=== PATIENT | male | born 1960 | race African-American/Black ===

== ENCOUNTER 2020-01-31 19:00 | Inpatient (IN) | payer OTHER ==
[~2020-01-31] VITALS: Ht 177.8 cm; Wt 83.0 kg
--- NOTE | 2020-01-31 19:00 | NUR ---
ULYSSES FROM THE BUS STOP, ETOH 1 EMPTY BOTTLE OF VODKA AT THE SCENE, PER REPORT PT IS ON THE RAIN FOR 3 DAYS, pt to bed 6, placed on monitor, noted hypothermic--walker gomez obtained, pt vss, -sob, pending er provider angelika
[2020-01-31] MEDS ORDERED: Thiamine 100 MG in IV D5W 50 ML IV SCH (19:30)
[2020-01-31] MEDS ORDERED: IV NS 0.9% 1,000 ML IV ONE (19:30)
[2020-01-31 19:55] LABS: EOSINOPHILS % (AUTO) 0.2 % (0.0-6.0); HEMATOCRIT 37 % (39-51); HEMOGLOBIN 12.2 g/dL (13.5-17.5); LYMPHOCYTES # (AUTO) 0.5 /CMM (0.8-4.8); MEAN CORPUSCULAR HGB CONC 33 g/dl (31.0-36.0); MEAN CORPUSCULAR VOLUME 93 fL (80-96); MONOCYTES # (AUTO) 0.2 /CMM (0.1-1.30); NEUTROPHILS # (AUTO) 2.7 /CMM (1.8-8.9); NEUTROPHILS % (AUTO) 77.8 % (43.0-81.0); PLATELET COUNT (AUTO) 213 /CMM (150-450); WHITE BLOOD COUNT (AUTO) 3.5 K/uL (4.3-11.0)
[2020-01-31] MEDS ORDERED: Thiamine 100 MG/ML VIAL ONE (20:03)
[2020-01-31 20:13] LABS: BILIRUBIN,DIRECT 0.1 mg/dL (0.0-0.2); BILIRUBIN,TOTAL 0.1 mg/dL (0.2-1.0); CALCIUM, SERUM 8.3 mg/dL (8.5-10.1); CREATININE 0.7 mg/dL (0.6-1.3); POTASSIUM 3.2 mmol/L (3.5-5.1); TOTAL PROTEIN, SERUM 8.1 g/dL (6.4-8.2)
--- NOTE | 2020-01-31 22:38 | NUR ---
walker on hugger connected with rectal probe -- temp improving at this time, pt sleeping, -sob, vss
--- NOTE | 2020-01-31 23:34 | NUR ---
BED ASSIGNMENT 114-1
[2020-02-01] MEDS ORDERED: MAGNESIUM HYDROXIDE 30 ML UDC PO PRN
[2020-02-01] MEDS ORDERED: ACETAMINOPHEN 325 MG TABLET PO PRN
[2020-02-01] MEDS ORDERED: ONDANSETRON HCL/PF 4 MG/2 ML VIAL IVP PRN
[2020-02-01] MEDS ORDERED: Z GUARD REMEDY 2 OZ OINT TP PRN
[2020-02-01] MEDS ORDERED: IV NS 0.9% 1,000 ML IV SCH
[2020-02-01] MEDS ORDERED: MAG HYDROX/AL HYDROX/SIMETH 30 ML UDC PO PRN
--- NOTE | 2020-02-01 00:06 | NUR ---
CONSULTING SYSTEMS ENGINEER NOTES: PATIENT ARRIVED TO UNIT VIA ACLS PROTOCOL. PATIENT IS A 59-YEAR-OLD MALE WITH DX: TOXIC ENCEPHALOPATHY. LETHARGIC, OPENS EYES TO VERBAL AND TACTILE STIMULI,. UNABLE TO OBTAIN FURTHER INFO AT THIS TIME. NO S/S OF PAIN. NO FACIAL GRAMACING OR ANY ACUTE DISTRESS. IV ACCESS (L) AC G20 C/D/I, FLUSHING WELL. PATIENT WAS ABLE TO ANSWER FEW QUESTIONS BUT WENT RIGHT BACK TO SLEEP. REMAINS HYPOTHERMIC 90.4F, WARM BATH PROVIDED, BEAR HUGGER IN PLACE, TOLERATING WELL AT THIS TIME. VITAL SIGNS TAKEN. PHYSICAL ASSESSMENT DONE AND PHOTOS OF SKIN ISSUES TAKEN WITH CONSENT; PLACED IN CHART. SAFETY PRECAUTIONS IMPLEMENTED. BED LOCKED, ALARM ON, IN LOW POSITION. CALL LIGHT PLACED WITHIN REACH. WILL CONT. TO MONITOR.
--- NOTE | 2020-02-01 00:18 | NUR ---
report given to oriana mckeon for rajeev pt transported to 1st floor
[2020-02-01 01:00] VITALS: BP 125/75
--- NOTE | 2020-02-01 02:20 | NUR ---
RN NOTE: PATIENT K+ 3.2. NOTIFIED DR. BLANCAS. NEW ORDER RECEIVED. WILL CARRY OUT.
[2020-02-01] MEDS: POTASSIUM CL. PREMIX PERIPHER. 50 ML IV SCH ×4 (02:35→05:55)
--- NOTE | 2020-02-01 03:45 | NUR ---
RN NOTE: PATIENT ON NEUROLOGICAL MONITORING. NOW MORE ALERT, EASILY AROUSABLE, VERBALLY RESPONSIVE. COOPERATIVE AT THIS TIME. WILL CONT. TO MONITOR.
[2020-02-01 04:00] VITALS: BP 98/55
--- NOTE | 2020-02-01 04:29 | NUR ---
RN NOTE: PATIENT TEMP 97.0F AT THIS TIME. BEAR HUGGER STILL IN PLACE, TOLERATING WELL. WILL CONT. TO MONITOR.
--- NOTE | 2020-02-01 07:05 | NUR ---
RN NOTE: PATIENT IN BED. NOW AWAKE AND VERBALLY RESPONSIVE BUT WITH EPISODES OF CONFUSION. NO RESPIRATORY DISTRESS. NO C/O PAIN. CONT. TO MONITOR NEUROLOGICAL STATUS. PATIENT STILL UNABLE TO PROVIDE FURTHER INFO. CHARGE NURSE AWARE. PATIENT'S LATEST TEMP VIA AXILLA 98.5F. BEAR HUGGER REMOVED. SAFETY PRECAUTIONS IMPLEMENTED. BED LOCKED, ALARM ON, LOW POSITION. CALL LIGHT PLACED WITHIN REACH. ENDORSED TO AM SHIFT NURSE FOR CONTINUITY OF CARE. Addendum: 02/01/20 at 0729 by SARAH PENNINGTON RN CORRECTION: CLOSING NOTES
[2020-02-01 07:30] LABS: BASOPHILS % (AUTO) 0.6 % (0.0-2.0); EOSINOPHILS % (AUTO) 1.6 % (0.0-6.0); HEMATOCRIT 30 % (39-51); HEMOGLOBIN 9.9 g/dL (13.5-17.5); LYMPHOCYTES # (AUTO) 0.5 /CMM (0.8-4.8); LYMPHOCYTES % (AUTO) 9.5 % (20.0-44.0); MEAN CORPUSCULAR HGB CONC 33 g/dl (31.0-36.0); MEAN CORPUSCULAR VOLUME 93 fL (80-96); MONOCYTES # (AUTO) 0.4 /CMM (0.1-1.30); MONOCYTES % (AUTO) 7.4 % (2.0-12.0); NEUTROPHILS # (AUTO) 3.9 /CMM (1.8-8.9); NEUTROPHILS % (AUTO) 80.9 % (43.0-81.0); PLATELET COUNT (AUTO) 176 /CMM (150-450); RED BLOOD CELL COUNT(AUTO) 3.27 MIL/uL (4.5-6.0); WHITE BLOOD COUNT (AUTO) 4.8 K/uL (4.3-11.0)
[2020-02-01] MEDS ORDERED: PANTOPRAZOLE 40 MG TABLET.DR PO SCH (07:30)
[2020-02-01 07:45] LABS: CALCIUM, SERUM 7.4 mg/dL (8.5-10.1); CREATININE 0.8 mg/dL (0.6-1.3); MAGNESIUM 1.6 mg/dL (1.8-2.4); PHOSPHORUS 4.2 mg/dL (2.5-4.9); POTASSIUM 4.2 mmol/L (3.5-5.1)
[2020-02-01 08:00] VITALS: BP 116/67
[2020-02-01] MEDS ORDERED: IV NS 0.9% 1,000 ML IV PRN (08:40)
[2020-02-01] MEDS ORDERED: FOLIC ACID 1 MG TABLET PO SCH (09:00)
[2020-02-01] MEDS ORDERED: THIAMINE HCL 100 MG TABLET PO SCH (09:00)
[2020-02-01] MEDS ORDERED: Magnesium 1GM/D5W 100ML PREMIX 100 ML IV SCH (11:48)
[2020-02-01 12:00] VITALS: BP 108/63
[2020-02-01] MEDS ORDERED: LORAZEPAM INJ 2 MG/ML VIAL IV PRN (12:30)
--- NOTE | 2020-02-01 14:45 | NUR ---
RN CLOSING NOTE PATIENT LEAVING AGAINST MEDICAL ADVICE. MD MADE AWARE. PATIENT REFUSED TO BE PHOTOGRAPHED. IV SITE AND ID BAND REMOVED. AMA FORM SIGNED.
== END 2020-02-01 15:30 | disposition left against medical advice (07) | DRG 816 ==
LOC: EDBD 19:02 → ER 19:02 → TELE1 02-01 00:11
PROVIDERS: ADMIT Internal Medicine; ATTEND Nurse Practitioner Acute Care
DX: T51.0X1A Toxic effect of ethanol, accidental (unintentional), initial encounter (principal); G92 Toxic encephalopathy; D61.818 Other pancytopenia; T68.XXXA Hypothermia, initial encounter; E87.0 Hyperosmolality and hypernatremia; Y90.8 Blood alcohol level of 240 mg/100 ml or more; Y92.89 Other specified places as the place of occurrence of the external cause; R74.0 Nonspecific elevation of levels of transaminase and lactic acid dehydrogenase [LDH]; Z59.0 Homelessness; F17.210 Nicotine dependence, cigarettes, uncomplicated; F10.229 Alcohol dependence with intoxication, unspecified; E83.42 Hypomagnesemia; D63.8 Anemia in other chronic diseases classified elsewhere
CPT/HCPCS: 36415; 71045-TC; 80048-TC; 80076-TC; 83690-TC; 83735-TC; 84100-TC; 84484-TC; 85025-TC; 87081-TC; 97116-TC; 97530-TC; G0378; G0480; J3411; J3475; J3480; J7030; J7060

== ENCOUNTER 2020-05-26 10:09 | Emergency (ER) | payer OTHER ==
[~2020-05-26] VITALS: Ht 165.1 cm; Wt 90.7 kg
--- NOTE | 2020-05-26 10:10 | NUR ---
PT ULYSSES FROM THE STREET C/O ETOH. PT IS AAOX3, NOT IN RESPIRATORY DISTRESS, V/S STABLE, KEPT RESTED AND COMFORTABLE. WILL CONTINUE TO MONITOR.
--- NOTE | 2020-05-26 10:14 | NUR ---
PT SEEN AND EXAMINED BY .
--- NOTE | 2020-05-26 10:50 | NUR ---
ER PHLEB AT BEDSIDE FOR BLOOD DRAW.
[2020-05-26 11:11] LABS: BASOPHILS # (AUTO) 0.1 /CMM (0.0-0.2); BASOPHILS % (AUTO) 1.4 % (0.0-2.0); EOSINOPHILS % (AUTO) 0.9 % (0.0-6.0); HEMATOCRIT 37 % (39-51); LYMPHOCYTES # (AUTO) 0.9 /CMM (0.8-4.8); LYMPHOCYTES % (AUTO) 19.6 % (20.0-44.0); MEAN CORPUSCULAR HGB CONC 32 g/dl (31.0-36.0); MEAN CORPUSCULAR VOLUME 96 fL (80-96); MONOCYTES # (AUTO) 0.4 /CMM (0.1-1.30); MONOCYTES % (AUTO) 9.5 % (2.0-12.0); NEUTROPHILS # (AUTO) 3.1 /CMM (1.8-8.9); NEUTROPHILS % (AUTO) 68.6 % (43.0-81.0); PLATELET COUNT (AUTO) 187 /CMM (150-450); RED BLOOD CELL COUNT(AUTO) 3.89 MIL/uL (4.5-6.0); WHITE BLOOD COUNT (AUTO) 4.5 K/uL (4.3-11.0)
[2020-05-26 11:19] LABS: CALCIUM, SERUM 8.7 mg/dL (8.5-10.1); CARBON DIOXIDE 25 mmol/L (21-32); CHLORIDE 106 mmol/L (98-107); CREATININE 1.3 mg/dL (0.6-1.3); GLUCOSE 82 mg/dL (74-106); POTASSIUM 3.7 mmol/L (3.5-5.1); SODIUM SERUM 144 mmol/L (136-145); UREA NITROGEN, BLOOD 11 mg/dL (7-18)
[2020-05-26 11:26] LABS: ALANINE AMINOTRANSFERASE 100 U/L (12-78); ALKALINE PHOSPHATASE 93 U/L (46-116); ASPARTATE AMINOTRANSFERASE 233 U/L (15-37); BILIRUBIN,DIRECT 0.2 mg/dL (0.0-0.2); BILIRUBIN,TOTAL 0.4 mg/dL (0.2-1.0); TOTAL PROTEIN, SERUM 7.9 g/dL (6.4-8.2)
[2020-05-26 11:27] LABS: ACETAMINOPHEN < 2 ug/ml (10-30); ALCOHOL, BLOOD 328 mg/dL (0-0); SALICYLATE 2.1 mg/dL (2.8-20.0)
[2020-05-26 17:31] VITALS: BP 105/60
--- NOTE | 2020-05-26 17:31 | NUR ---
Patient given written and verbal discharge instructions. Patient verbalizes understanding of instructions. Patient is ambulatory with steady gait. Refuses offer of custodial placement. Patient given list of available shelters in surrounding area.
== END 2020-05-26 17:31 | disposition home or self-care (01) ==
LOC: EDBD → ER 10:13
DX: F10.129 Alcohol abuse with intoxication, unspecified (principal); I11.0 Hypertensive heart disease with heart failure; I50.9 Heart failure, unspecified; R74.0 Nonspecific elevation of levels of transaminase and lactic acid dehydrogenase [LDH]; D64.9 Anemia, unspecified; R41.0 Disorientation, unspecified; Y90.8 Blood alcohol level of 240 mg/100 ml or more; Z59.0 Homelessness
CPT/HCPCS: 36415; 71045; 80048; 80076; 80307; 80329; 82962; 83880; 84484; 85025; 93005; 99285; G0480

== ENCOUNTER 2020-05-27 20:11 | Emergency (ER) | payer OTHER ==
[~2020-05-27] VITALS: Ht 170.2 cm; Wt 82.6 kg
--- NOTE | 2020-05-27 20:35 | NUR ---
PATIENT CAME FROM THE STREETS C/O MIDSTERNAL CHEST PAIN FOR 2x DAYS. PATIENT ALSO STATES, "I AM HERE BECAUSE OF MY . SHE IS GOING TO GET 2.1 MILLION DOLLARS FROM ME". PATIENT STATES, ALSO ADMITS TO DRINKING. AAOX3. NO SOB. BREATHING EVENLY AND UNLABORED ON ROOM AIR. CONNECTED TO MONITOR.
--- NOTE | 2020-05-27 20:43 | NUR ---
BLOOD DRAWN AND SENT TO THE LAB.
[2020-05-27 20:48] LABS: BASOPHILS # (AUTO) 0.1 /CMM (0.0-0.2); BASOPHILS % (AUTO) 1.3 % (0.0-2.0); EOSINOPHILS % (AUTO) 0.8 % (0.0-6.0); HEMATOCRIT 32 % (39-51); HEMOGLOBIN 10.4 g/dL (13.5-17.5); LYMPHOCYTES # (AUTO) 1.2 /CMM (0.8-4.8); LYMPHOCYTES % (AUTO) 25.1 % (20.0-44.0); MEAN CORPUSCULAR HGB CONC 33 g/dl (31.0-36.0); MEAN CORPUSCULAR VOLUME 95 fL (80-96); MONOCYTES # (AUTO) 0.5 /CMM (0.1-1.30); NEUTROPHILS # (AUTO) 3.1 /CMM (1.8-8.9); NEUTROPHILS % (AUTO) 62.8 % (43.0-81.0); PLATELET COUNT (AUTO) 173 /CMM (150-450); RED BLOOD CELL COUNT(AUTO) 3.35 MIL/uL (4.5-6.0); WHITE BLOOD COUNT (AUTO) 4.9 K/uL (4.3-11.0)
[2020-05-27 20:55] LABS: CALCIUM, SERUM 8.8 mg/dL (8.5-10.1); CREATININE 1.3 mg/dL (0.6-1.3); POTASSIUM 3.7 mmol/L (3.5-5.1)
--- NOTE | 2020-05-28 01:22 | NUR ---
pt is resting in bed awake and responsive. watching TV. VSS. will cont to monitor ,
[2020-05-28 06:45] VITALS: BP 123/71
[2020-07-03] MEDS ORDERED: CARV6.252 PO (15:03)
== END 2020-05-28 06:45 | disposition home or self-care (01) ==
LOC: ER 20:15
DX: R00.2 Palpitations (principal); F10.10 Alcohol abuse, uncomplicated; I11.0 Hypertensive heart disease with heart failure; I50.9 Heart failure, unspecified; E11.9 Type 2 diabetes mellitus without complications; Z59.0 Homelessness; Y90.8 Blood alcohol level of 240 mg/100 ml or more
CPT/HCPCS: 36415; 71045-TC; 80048-TC; 84484-TC; 85025-TC

== ENCOUNTER 2020-06-25 16:14 | Emergency (ER) | payer OTHER ==
[~2020-06-25] VITALS: Ht 170.2 cm; Wt 74.8 kg
[2020-06-25 18:13] LABS: BASOPHILS % (AUTO) 0.8 % (0.0-2.0); EOSINOPHILS % (AUTO) 3.2 % (0.0-6.0); HEMATOCRIT 31 % (39-51); LYMPHOCYTES # (AUTO) 1.1 /CMM (0.8-4.8); LYMPHOCYTES % (AUTO) 27.8 % (20.0-44.0); MEAN CORPUSCULAR HGB CONC 32 g/dl (31.0-36.0); MEAN CORPUSCULAR VOLUME 96 fL (80-96); MONOCYTES # (AUTO) 0.5 /CMM (0.1-1.30); MONOCYTES % (AUTO) 13.7 % (2.0-12.0); NEUTROPHILS # (AUTO) 2.1 /CMM (1.8-8.9); NEUTROPHILS % (AUTO) 54.5 % (43.0-81.0); PLATELET COUNT (AUTO) 142 /CMM (150-450); RED BLOOD CELL COUNT(AUTO) 3.28 MIL/uL (4.5-6.0); WHITE BLOOD COUNT (AUTO) 3.9 K/uL (4.3-11.0)
[2020-06-25 18:32] LABS: ALBUMIN 3.9 g/dL (3.4-5.0); BILIRUBIN,TOTAL 0.2 mg/dL (0.2-1.0); CALCIUM, SERUM 8.7 mg/dL (8.5-10.1); CREATININE 1.2 mg/dL (0.6-1.3); POTASSIUM 3.8 mmol/L (3.5-5.1); TOTAL PROTEIN, SERUM 7.3 g/dL (6.4-8.2)
[2020-06-25 19:29] VITALS: BP 134/90
== END 2020-06-25 19:29 | disposition home or self-care (01) ==
LOC: ER 16:16
DX: F10.10 Alcohol abuse, uncomplicated (principal); R07.89 Other chest pain; I11.0 Hypertensive heart disease with heart failure; I50.9 Heart failure, unspecified; E11.9 Type 2 diabetes mellitus without complications; Y90.9 Presence of alcohol in blood, level not specified; Z59.0 Homelessness
CPT/HCPCS: 36415; 71045-TC; 80053-TC; 84484-TC; 85025-TC

== ENCOUNTER 2020-07-01 09:29 | Inpatient (IN) | payer OTHER ==
[~2020-07-01] VITALS: Ht 167.6 cm; Wt 76.7 kg
--- NOTE | 2020-07-01 09:33 | NUR ---
CATRACHITA RA 85 Homeless from [facility] parking lot "Flagged a guard stating been having pains that feels like gas going to chest-arm. +ETOH-drinking on scene. To ER bed 11, hooked to statistical developer, changed to hosp gown, warm blanket provided, patient aao X 3, appears drowsy. Patient states "pain in the middle of my chest and going to the L arm". Awaiting MD carney
--- NOTE | 2020-07-01 09:34 | NUR ---
Dr Leonardo at bedside
[2020-07-01] MEDS ORDERED: NITROGLYCERIN 0.4 MG/TAB BOTTLE SL ONE (10:00)
[2020-07-01] MEDS ORDERED: ASPIRIN 325 MG TABLET PO ONE (10:00)
[2020-07-01 10:02] LABS: BASOPHILS # (AUTO) 0.1 /CMM (0.0-0.2); BASOPHILS % (AUTO) 1.3 % (0.0-2.0); EOSINOPHILS % (AUTO) 1.2 % (0.0-6.0); HEMATOCRIT 37 % (39-51); HEMOGLOBIN 11.7 g/dL (13.5-17.5); LYMPHOCYTES # (AUTO) 1.1 /CMM (0.8-4.8); LYMPHOCYTES % (AUTO) 17.8 % (20.0-44.0); MEAN CORPUSCULAR HGB CONC 32 g/dl (31.0-36.0); MEAN CORPUSCULAR VOLUME 98 fL (80-96); MONOCYTES # (AUTO) 0.6 /CMM (0.1-1.30); MONOCYTES % (AUTO) 9.3 % (2.0-12.0); NEUTROPHILS # (AUTO) 4.2 /CMM (1.8-8.9); NEUTROPHILS % (AUTO) 70.4 % (43.0-81.0); PLATELET COUNT (AUTO) 218 /CMM (150-450); RED BLOOD CELL COUNT(AUTO) 3.74 MIL/uL (4.5-6.0); WHITE BLOOD COUNT (AUTO) 5.9 K/uL (4.3-11.0)
[2020-07-01] MEDS ORDERED: ASPIRIN 325 MG TABLET ONE (10:03)
[2020-07-01] MEDS ORDERED: NITROGLYCERIN 0.4 MG/TAB BOTTLE ONE (10:03)
[2020-07-01 10:49] LABS: CALCIUM, SERUM 8.4 mg/dL (8.5-10.1); CREATININE 0.9 mg/dL (0.6-1.3); POTASSIUM 3.9 mmol/L (3.5-5.1)
[2020-07-01] MEDS ORDERED: PHEN100C12 PO (11:25)
[2020-07-01] MEDS ORDERED: CLOP75TA15 PO (11:25)
[2020-07-01] MEDS ORDERED: CARV6.252 PO (11:25)
[2020-07-01] MEDS ORDERED: ASPI-1420 PO (11:25)
[2020-07-01] MEDS ORDERED: ATOR40TA PO (11:25)
[2020-07-01] MEDS ORDERED: AMLO5TAB9 PO (11:25)
--- NOTE | 2020-07-01 11:42 | NUR ---
ER ADMIT NURSE SHIMA CALLED FROM [facility] AUTHORIZED PATIENT FOR ADMISSION AUTH#[id number] FAX
--- NOTE | 2020-07-01 12:20 | NUR ---
CALLED NURSING SUP REQUESTING BED.
--- NOTE | 2020-07-01 13:03 | NUR ---
CALLED [employer] HIGH WORKER WAS PAGED.
--- NOTE | 2020-07-01 13:45 | NUR ---
RECEIVED PATIENT FROM ER [facility]IA [facility]. A/OX4, AMBULATORY. NOT IN ANY FORM OF DISTRESS. NO SOB. COMPLAINTS OF PAIN 08/28, "ALL OVER THE BODY", WILL ADMINISTER PAIN MEDS ORDERED. SITUATED THE PATIENT IN THE ROOM. ON TELEMONITOR SR 79. SKIN ASSESSMENT DONE, SKIN INTACT. BELONGINGS CHECKED BY PAUL CORDERO, FORMS SIGNED. INSTRUCTED TO USE THE CALL LIGHT FOR ANY ASSISTANCE NEEDED. KEPT PATIENT COMFORTABLE. BED IN LOW/LOCKED PSOITION. PADDED SIDERAILS FOR SEIZURE PRECAUTIONS. HOB ELEVATED. CALL LIGHT IN REACH. WILL CONT TO MONITOR ACCORDINGLY. Addendum: 07/01/20 at 1919 by GATITO KAISER WRONG TIME
--- NOTE | 2020-07-01 13:51 | NUR ---
rapid covid swab done and sent to lab
--- NOTE | 2020-07-01 14:29 | NUR ---
RAPID COVID =NEGATIVE PER LAB
[2020-07-01 15:34] VITALS: BP 129/92
--- NOTE | 2020-07-01 15:35 | NUR ---
RECEIVED PATIENT FROM ER [facility]IA [facility]. A/OX4, AMBULATORY. NOT IN ANY FORM OF DISTRESS. NO SOB. COMPLAINTS OF PAIN 10/, "ALL OVER THE BODY", WILL ADMINISTER PAIN MEDS ORDERED. SITUATED THE PATIENT IN THE ROOM. ON TELEMONITOR SR 79. SKIN ASSESSMENT DONE, SKIN INTACT. BELONGINGS CHECKED BY PAUL CORDERO, FORMS SIGNED. INSTRUCTED TO USE THE CALL LIGHT FOR ANY ASSISTANCE NEEDED. KEPT PATIENT COMFORTABLE. BED IN LOW/LOCKED PSOITION. PADDED SIDERAILS FOR SEIZURE PRECAUTIONS. HOB ELEVATED. CALL LIGHT IN REACH. WILL CONT TO MONITOR ACCORDINGLY.
[2020-07-01] MEDS ORDERED: Z GUARD REMEDY 2 OZ OINT TP PRN (16:30)
[2020-07-01] MEDS: ENOXAPARIN SODIUM 40 MG/0.4 ML DISP.SYRIN SQ SCH (16:30)
[2020-07-01] MEDS ORDERED: HYDROCODONE/APAP 5/325MG 1 EACH TABLET PO PRN (16:30)
[2020-07-01] MEDS ORDERED: MAG HYDROX/AL HYDROX/SIMETH 30 ML UDC PO PRN (16:30)
[2020-07-01] MEDS ORDERED: ACETAMINOPHEN 325 MG TABLET PO PRN (16:30)
[2020-07-01] MEDS ORDERED: ZOLPIDEM TARTRATE 5 MG TABLET PO PRN (16:30)
[2020-07-01] MEDS ORDERED: ONDANSETRON HCL/PF 4 MG/2 ML VIAL IVP PRN (16:30)
[2020-07-01] MEDS ORDERED: MAGNESIUM HYDROXIDE 30 ML UDC PO PRN (16:30)
[2020-07-01] MEDS: CLOPIDOGREL BISULFATE 75 MG TABLET PO SCH (16:53)
[2020-07-01] MEDS: PHENYTOIN EXTENDED RELEASE 100 MG CAPSULE PO SCH (16:55)
[2020-07-01] MEDS ORDERED: CARVEDILOL 6.25 MG TABLET PO SCH (17:00)
[2020-07-01] MEDS ORDERED: ATORVASTATIN 40 MG TABLET PO SCH (18:00)
--- NOTE | 2020-07-01 19:20 | NUR ---
RN CLOSING NOTES PATIENT IN STABLE CONDITION. ALL NEEDS ATTENDED AND PROVIDED. ALL DUE MEDS GIVEN ORDERED. KEPT PATIENT SAFE AND COMFORTABLE. SEIZURE PRECAUTIONS IN PLACE, PADDED SIDERAILS UP, BED IN LOW/LOCKED PSOTIION. CALL LIGHT IN REACH. ENDORSED ACCORDINGLY
[2020-07-01 20:00] VITALS: BP 131/98
--- NOTE | 2020-07-01 20:00 | NUR ---
GOVERNMENT RELATIONS ANALYST: RECEIVED REPORT FROM GATITO MCDOWELL AT 1920. MET WITH PT AT BED SIDE, PT A/O X3 ON RA RESPIRATIONS EVEN AND UNLABORED. IV ACCESS ON LEFT HAND G 22 PATENT AND FLUSHING WELL, ON HL. PT ON TELE, SINUS RHYTHM HR 76. PT DENIES ANY CHEST PAIN OR DISCOMFORT AT THIS TIME. PT PROVIDED WITH JELLO AND JUICE PER REQUEST. DISCUSSED PLAN OF CARE TONIGHT, PT AGREE AND UNDERSTAND. URINAL WITHIN REACH, PT CONTINENT. AMBULATORY WITH ASSIST. SAFETY PRECAUTIONS FOR FALL INITIATED, CALL LIGHT IN REACH, WILL CONTINUE MONITORING PT.
[2020-07-01 20:33] VITALS: BP 131/98
[2020-07-02] VITALS: BP 135/90
[2020-07-02 04:00] VITALS: BP 125/88
--- NOTE | 2020-07-02 06:46 | NUR ---
End of shift report: Pt denies any chest pain or discomfort throughout the shift. Iv access remains patent and flushing well, on hl, no s/s of iv infiltration noted. All troponin result came back negative. Remains on sinus rhythm hr 75.PLAN OF CARE: For eeg and Cardio consult. Am labs drawn. Vs remains stable. Needs attended. Safety precautions for fall remains engaged, call light in reach, will endorse to day oriana MACKENZIE, for continuity of care.
[2020-07-02 07:19] LABS: BASOPHILS # (AUTO) 0.1 /CMM (0.0-0.2); EOSINOPHILS % (AUTO) 2.1 % (0.0-6.0); HEMATOCRIT 32 % (39-51); HEMOGLOBIN 10.5 g/dL (13.5-17.5); LYMPHOCYTES # (AUTO) 0.6 /CMM (0.8-4.8); LYMPHOCYTES % (AUTO) 12.3 % (20.0-44.0); MEAN CORPUSCULAR HGB CONC 33 g/dl (31.0-36.0); MEAN CORPUSCULAR VOLUME 94 fL (80-96); MONOCYTES # (AUTO) 0.6 /CMM (0.1-1.30); MONOCYTES % (AUTO) 10.7 % (2.0-12.0); NEUTROPHILS # (AUTO) 3.8 /CMM (1.8-8.9); NEUTROPHILS % (AUTO) 72.9 % (43.0-81.0); PLATELET COUNT (AUTO) 217 /CMM (150-450); RED BLOOD CELL COUNT(AUTO) 3.36 MIL/uL (4.5-6.0); WHITE BLOOD COUNT (AUTO) 5.2 K/uL (4.3-11.0)
--- NOTE | 2020-07-02 07:35 | NUR ---
SUPERINTENDENT DRILLING AND PRODUCTION NOTES RECEIVED PT IN BED, AWAKE, A/O X4. PT TOLERATING RA, WITH NO ACUTE RESPIRATORY DISTRESS NOTED. PT DENIES ANY PAIN AT THIS TIME. ON TELEMONITORING ST 107, DR. PHAN AWARE DURING ROUNDS, PT DENIES ANY CHEST PAIN. PT DENIES ANY CONCERNS OR QUESTIONS WELL. PIV TO LHAND G22, FLUSHED WITH NS, INTACT AND OPERATIONAL. PT KEPT COMFORTABLE. CALL LIGHT KEPT WITHIN REACH. PT'S BED IN LOWEST, LOCKED POSITION WITH SR X2. WILL CONTINUE PLAN OF CARE.
[2020-07-02 07:42] LABS: PHOSPHORUS 3.5 mg/dL (2.5-4.9)
--- NOTE | 2020-07-02 08:01 | NUR ---
MS RN NOTES OBTAINED WRITTEN CONSENT FOR CT ANGIO OF HEART, VERIFIED WITH RADIOLOGIST. PT CAN EAT BUT SKIP ANY ANTICOAGULANTS AND CAFFEINE. PT MADE AWARE. WILL CONTINUE TO MONITOR.
[2020-07-02 08:31] VITALS: BP 157/95
[2020-07-02] MEDS: PHENYTOIN EXTENDED RELEASE 100 MG CAPSULE PO SCH (08:38)
[2020-07-02] MEDS: CARVEDILOL 6.25 MG TABLET PO SCH ×2 (08:40→17:07)
[2020-07-02] MEDS: AMLODIPINE BESYLATE 5 MG TABLET PO SCH (08:41)
[2020-07-02] MEDS: PANTOPRAZOLE 40 MG TABLET.DR PO SCH (08:43)
--- NOTE | 2020-07-02 09:00 | NUR ---
MS RN NOTES SPOKE TO RN/JOEL REGARDING HOLDING ASA AND PLAVIX AND JUST GIVE AFTER THE CTA PROCEDURE. ALSO, TO NON ADMIN [facility] BECAUSE THEY'LL GIVE METOPROLOL DURING PROCEDURE. COREG PO OKAY TO GIVE. WILL CONTINUE TO MONITOR.
[2020-07-02] MEDS ORDERED: NITROGLYCERIN 0.4 MG/TAB BOTTLE SL ONE (10:00)
[2020-07-02] MEDS ORDERED: METOPROLOL TARTRATE INJ 5 MG/5 ML AMPUL IVP ONE (10:00)
[2020-07-02] MEDS ORDERED: IV NS 0.9% 500 ML IV PRN (10:00)
--- NOTE | 2020-07-02 11:30 | NUR ---
MS RN NOTES PT LEFT THE UNIT FOR CTA PROCEDURE. WHEELED PT DOWN VIA WHEELCHAIR. WILL CONTINUE TO MONITOR.
[2020-07-02] MEDS ORDERED: CT SWABBABLE VALVE TRANS SET 1 EA INFUS.SET MC ONE (11:32)
[2020-07-02] MEDS ORDERED: IV NS 0.9% 250 ML IV ONE (11:32)
[2020-07-02] MEDS ORDERED: IOHEXOL-350 100 ML VIAL IV ONE (11:32)
[2020-07-02] MEDS ORDERED: METOPROLOL TARTRATE INJ 5 MG/5 ML AMPUL ONE ×4 (11:50→12:26)
--- NOTE | 2020-07-02 12:30 | NUR ---
MS RN NOTES PT CAME BACK FROM CTA. STABLE VITALS. NEWLY INSERTED PIV TO LAC G20, FLUSHED WITH NS, INTACT AND OPERATIONAL.
--- NOTE | 2020-07-02 12:33 | NUR ---
Orthodontic Laboratory Technician met with the patient at bedside. Pt was alert and orientated. Pt was open to meeting with SW. Patient is a59 year-old Male. Patient resided with his brother in [facility] prior to admission. Patient will likely discharge and stay with his girlfriend Modesta. Patient began drinking alcohol at the age of 24. Currently the patient only drinks 3x a week 11/23 of . Patient currently receives $221 in [employer]. Patient reported a diagnoses of depression, he stated that he would see a psychiatrist 2x a month and this psychiatrist also precribed medication. Patient reported that he stopped this because he was incarcerated last year. Patient stated that he would try to see this psychiatrsit again but would like additional resources from Social Work. Patient asked for a TAP card when discharged so he can go to his grilfriend's. Social Work to provide these resources.
[2020-07-02] MEDS: CLOPIDOGREL BISULFATE 75 MG TABLET PO SCH (14:17)
[2020-07-02] MEDS: ASPIRIN EC 81 MG TABLET.DR PO SCH (14:17)
[2020-07-02 16:05] VITALS: BP 132/92
--- NOTE | 2020-07-02 17:07 | NUR ---
MS RN NOTES EEG WAS JUST FINISHED. RESULTS SENT TO DR. ACEVEDO PER DR. MOSER'S PREFERENCE. ALSO INFORMED DR. MOSER REGARDING NO NEURO CONSULT PRESENT PER DR. ACEVEDO AT THIS TIME. WILL CONTINUE TO MONITOR.
--- NOTE | 2020-07-02 18:54 | NUR ---
MS RN NOTES PT REMAINS IN BED, AWAKE, A/O X4. PT TOLERATING RA, WITH NO ACUTE RESPIRATORY DISTRESS NOTED. PT DENIES ANY PAIN AT THIS TIME. PIV TO LHAND G22 AND LAC G20 SL, BOTH FLUSHED WITH NS, INTACT AND OPERATIONAL. ALL NEEDS AND CARE ATTENDED. PT KEPT COMFORTABLE. CALL LIGHT KEPT WITHIN REACH. PT'S BED IN LOWEST, LOCKED POSITION WITH SR X2. WILL ENDORSE TO INCOMING NIGHT NURSE FOR LURDES.
--- NOTE | 2020-07-02 19:30 | NUR ---
MS RN RECEIVE PT AWAKE NO CHEST PAIN A/O X 3, NO S/S OF DISTRESS. STABLE CONDITION. SAFETY MEASURES AT ALL TIMES. WILL CONT TO MONITOR.
[2020-07-02 20:00] VITALS: BP 127/69
[2020-07-02] MEDS: ENOXAPARIN SODIUM 40 MG/0.4 ML DISP.SYRIN SQ SCH (21:00)
--- NOTE | 2020-07-02 21:48 | NUR ---
MS RN PT REFUSED LOVENOX SQ DUE AT 2100 DESPITE EXPLAINING RISKS AND BENEFITS OFFERED 3 TIMES PT REFUSING PER PT"I DONT NEED IT".
--- NOTE | 2020-07-03 05:52 | NUR ---
MS RN SLEPT WELL 8 HOURS, AWAKE AND EASILY AWAKEN, HAD PM SNACKS LAST NIGHT. IN NO APPARENT DISTRESS, STABLE, MONITORED ACCORDINGLY, NO COMPLAIN OF CHEST PAIN, KEPT CLEAN, DRY AND COMFORTABLE. NEEDS ATTENDED AND ANTICIPATED, TOLERATING ROOM AIR, SAFETY MEASURES IN PLACE. WILL ENDORSE.
--- NOTE | 2020-07-03 07:30 | NUR ---
RN Opening Received patient AO x 3, able to responds all stimuli. Respiratory even and unlabored on room air, no distress observed. Denies chest pain or discomfort, skin is warm to touch, kept clean/dry, intact midline site site. keep bed in lock with elevated HOB for ensure airway and aspiration precaution, call light within reach, will continue to monitor.
[2020-07-03] MEDS: PANTOPRAZOLE 40 MG TABLET.DR PO SCH (07:49)
[2020-07-03 08:22] LABS: BASOPHILS # (AUTO) 0.1 /CMM (0.0-0.2); BASOPHILS % (AUTO) 1.2 % (0.0-2.0); HEMATOCRIT 33 % (39-51); HEMOGLOBIN 10.9 g/dL (13.5-17.5); LYMPHOCYTES # (AUTO) 0.9 /CMM (0.8-4.8); LYMPHOCYTES % (AUTO) 15.4 % (20.0-44.0); MEAN CORPUSCULAR HGB CONC 33 g/dl (31.0-36.0); MEAN CORPUSCULAR VOLUME 97 fL (80-96); MONOCYTES # (AUTO) 0.7 /CMM (0.1-1.30); MONOCYTES % (AUTO) 11.1 % (2.0-12.0); NEUTROPHILS # (AUTO) 4.3 /CMM (1.8-8.9); NEUTROPHILS % (AUTO) 70.3 % (43.0-81.0); PLATELET COUNT (AUTO) 194 /CMM (150-450); RED BLOOD CELL COUNT(AUTO) 3.44 MIL/uL (4.5-6.0); WHITE BLOOD COUNT (AUTO) 6.1 K/uL (4.3-11.0)
[2020-07-03 08:26] LABS: CALCIUM, SERUM 9.1 mg/dL (8.5-10.1); CREATININE 1.1 mg/dL (0.6-1.3); MAGNESIUM 1.9 mg/dL (1.8-2.4); PHOSPHORUS 3.3 mg/dL (2.5-4.9); POTASSIUM 3.9 mmol/L (3.5-5.1)
[2020-07-03] MEDS: CLOPIDOGREL BISULFATE 75 MG TABLET PO SCH (09:36)
[2020-07-03] MEDS: ASPIRIN EC 81 MG TABLET.DR PO SCH (09:36)
[2020-07-03] MEDS: PHENYTOIN EXTENDED RELEASE 100 MG CAPSULE PO SCH (09:36)
[2020-07-03] MEDS: CARVEDILOL 6.25 MG TABLET PO SCH (09:36)
[2020-07-03 09:37] VITALS: BP 134/70
[2020-07-03] MEDS: AMLODIPINE BESYLATE 5 MG TABLET PO SCH (09:37)
[2020-07-03] MEDS ORDERED: CARV6.252 PO (15:03)
--- NOTE | 2020-07-03 16:16 | NUR ---
Given discharge instructions include fern picker prescription med/side effect, diet, and activity resume, patient verbally understand. Denies pain or discomfort, in stable condition. Patient left with accompanied by staff.
== END 2020-07-03 16:24 | disposition home or self-care (01) | DRG 198 ==
LOC: ER 09:33 → TELE 14:40 → MED 07-02 09:48
PROVIDERS: ADMIT Student in an Organized Health Care Education/Training Program; ATTEND Student in an Organized Health Care Education/Training Program
DX: I25.10 Atherosclerotic heart disease of native coronary artery without angina pectoris (principal); I11.0 Hypertensive heart disease with heart failure; E11.9 Type 2 diabetes mellitus without complications; D64.9 Anemia, unspecified; F17.210 Nicotine dependence, cigarettes, uncomplicated; I50.32 Chronic diastolic (congestive) heart failure; Z59.0 Homelessness; Z91.14 Patient's other noncompliance with medication regimen; I25.2 Old myocardial infarction; R74.0 Nonspecific elevation of levels of transaminase and lactic acid dehydrogenase [LDH]; F10.21 Alcohol dependence, in remission
CPT/HCPCS: 36415; 71045-TC; 75574; 76700-TC; 80048-TC; 80061-TC; 83735-TC; 83880; 84100-TC; 84484-TC; 85025-TC; 87081-TC; 93307-TC; 95819-TC; 97116-TC; 97530-TC; C9803-CS; G0378; J1650; J3490; J7040; J7050; Q9967

== ENCOUNTER 2020-07-21 16:24 | Emergency (ER) | payer OTHER ==
[~2020-07-21] VITALS: Ht 170.2 cm; Wt 72.6 kg
[~2020-07-21 16:24] MED LIST: AMLO5TAB9 PO; ASPI-1420 PO; ATOR40TA PO; CARV6.252 PO; CLOP75TA15 PO; PHEN100C12 PO
--- NOTE | 2020-07-21 16:34 | NUR ---
been drinking alcohol whole day - found sleeping in the side street - [employer] called the paramedics
[2020-07-21 17:02] LABS: BASOPHILS # (AUTO) 0.1 /CMM (0.0-0.2); BASOPHILS % (AUTO) 1.8 % (0.0-2.0); EOSINOPHILS % (AUTO) 5.9 % (0.0-6.0); HEMATOCRIT 32 % (39-51); HEMOGLOBIN 10.6 g/dL (13.5-17.5); LYMPHOCYTES % (AUTO) 29.6 % (20.0-44.0); MEAN CORPUSCULAR HGB CONC 33 g/dl (31.0-36.0); MEAN CORPUSCULAR VOLUME 97 fL (80-96); MONOCYTES # (AUTO) 0.4 /CMM (0.1-1.30); MONOCYTES % (AUTO) 12.9 % (2.0-12.0); NEUTROPHILS # (AUTO) 1.7 /CMM (1.8-8.9); NEUTROPHILS % (AUTO) 49.8 % (43.0-81.0); PLATELET COUNT (AUTO) 118 /CMM (150-450); RED BLOOD CELL COUNT(AUTO) 3.28 MIL/uL (4.5-6.0); WHITE BLOOD COUNT (AUTO) 3.4 K/uL (4.3-11.0)
[2020-07-21 17:17] LABS: ALBUMIN 3.5 g/dL (3.4-5.0); BILIRUBIN,DIRECT 0.1 mg/dL (0.0-0.2); BILIRUBIN,TOTAL 0.3 mg/dL (0.2-1.0); CREATININE 1.1 mg/dL (0.6-1.3); POTASSIUM 3.1 mmol/L (3.5-5.1); TOTAL PROTEIN, SERUM 6.6 g/dL (6.4-8.2)
[2020-07-21 17:18] LABS: SALICYLATE 2.1 mg/dL (2.8-20.0)
[2020-07-21] MEDS ORDERED: ONDANSETRON 4 MG TAB.RAPDIS ONE (17:59)
[2020-07-21] MEDS ORDERED: IV D5W 1,000 ML IV PRN (18:09)
[2020-07-21] MEDS: ONDANSETRON 4 MG TAB.RAPDIS PO ONE (18:26)
[2020-07-21] MEDS ORDERED: ACETAMINOPHEN 325 MG TABLET PO PRN (18:30)
[2020-07-21] MEDS ORDERED: MAG HYDROX/AL HYDROX/SIMETH 30 ML UDC PO PRN (18:30)
[2020-07-21] MEDS ORDERED: ONDANSETRON HCL/PF 4 MG/2 ML VIAL IVP PRN (18:30)
[2020-07-21] MEDS ORDERED: Z GUARD REMEDY 2 OZ OINT TP PRN (18:30)
[2020-07-21] MEDS ORDERED: LORAZEPAM INJ 2 MG/ML VIAL IV PRN (18:30)
--- NOTE | 2020-07-21 18:30 | NUR ---
MEDICATED FOR NAUSEA PER ERMD ORDER, PT FRANK WELL.
[2020-07-21] MEDS: IV NS 0.9% 1,000 ML BAG IV ONE (19:32)
[2020-07-21] MEDS ORDERED: POTASSIUM CHLORIDE 20 MEQ TAB.PRT.SR PO ONE (19:46)
[2020-07-21] MEDS ORDERED: FOLIC ACID 1 MG TABLET ONE (19:46)
[2020-07-21] MEDS ORDERED: PANTOPRAZOLE 40 MG VIAL ONE (19:47)
[2020-07-21] MEDS: FOLIC ACID 1 MG TABLET PO ONE (19:56)
[2020-07-21] MEDS: POTASSIUM CHLORIDE 20 MEQ TAB.PRT.SR PO ONE (19:56)
[2020-07-21] MEDS: Thiamine 100 MG in IV D5W 50 ML IV SCH (19:57)
[2020-07-21] MEDS: PANTOPRAZOLE 40 MG VIAL IV SCH (19:57)
--- NOTE | 2020-07-21 19:58 | NUR ---
PT ASLEEP, EASILY AWAKEN BY VERBAL STIMULI. DENIES CP, SOB, DIZZINESS, WEAKNESS AT THIS TIME. MEDICATED PER ERMD ORDER, PT FRANK WELL. DENIES CP, SOB, DIZZINESS, WEAKNESS AT THIS TIME. WILL CONT TO MONITOR.
--- NOTE | 2020-07-21 21:11 | NUR ---
Patient is resting comfortably in bed with eyes closed. Easily aroused. VSS
[2020-07-22 02:22] VITALS: BP 127/71
--- NOTE | 2020-07-22 02:22 | NUR ---
IV removed. Catheter intact and site benign. Pressure and 4x4 applied to site. No bleeding noted. Patient discharged to home in stable condition. Written and verbal after care instructions given. Patient verbalizes understanding of instruction. Pt ambualted with steady gait. vss.
== END 2020-07-22 02:22 | disposition home or self-care (01) ==
LOC: ER 16:25
DX: F10.129 Alcohol abuse with intoxication, unspecified (principal); K70.9 Alcoholic liver disease, unspecified; D61.818 Other pancytopenia; E87.0 Hyperosmolality and hypernatremia; E87.6 Hypokalemia; E86.0 Dehydration; I11.0 Hypertensive heart disease with heart failure; I50.9 Heart failure, unspecified; E11.9 Type 2 diabetes mellitus without complications; G40.909 Epilepsy, unspecified, not intractable, without status epilepticus; I25.10 Atherosclerotic heart disease of native coronary artery without angina pectoris; Y90.8 Blood alcohol level of 240 mg/100 ml or more; Z59.0 Homelessness; Z86.73 Personal history of transient ischemic attack (TIA), and cerebral infarction without residual deficits; Z95.5 Presence of coronary angioplasty implant and graft; Z79.82 Long term (current) use of aspirin; Z79.899 Other long term (current) drug therapy
CPT/HCPCS: 36415; 80048; 80076; 80307; 80329; 85025; 87081; 93005; 96365; 96375; 99284; C9113; G0480; J3411; J7030; J7060; Q0162

== ENCOUNTER 2020-08-01 12:23 | Emergency (ER) | payer OTHER ==
[~2020-08-01] VITALS: Ht 177.8 cm; Wt 76.7 kg
--- NOTE | 2020-08-01 12:42 | NUR ---
BIBRA FROM A SIDEWALK, LYING DOWN. TO ER BED 14. INTOXICATED, ADMITS TO DRINKING. BROUGHT IN FOR ALCOHOL INTOXICATION. NOT IN RESP DISTRESS, BREATHING EVEN AND UNLABORED. ARROUSABLE. MD WAS AT THE BEDSIDE FOR EVAL. ORDERS RECEIVED.
--- NOTE | 2020-08-01 13:56 | NUR ---
Patient awake alert noted steady gate ,asking for food given snacks appreaciated it
--- NOTE | 2020-08-01 14:01 | NUR ---
Bus ticket given .
--- NOTE | 2020-08-01 14:01 | NUR ---
Patient discharged to home in stable condition. Written and verbal after care instructions given. Patient verbalizes understanding of instruction.
[2020-08-01 14:03] VITALS: BP 130/78
== END 2020-08-01 23:00 | disposition home or self-care (01) ==
LOC: ER 12:26
DX: F10.129 Alcohol abuse with intoxication, unspecified (principal); I11.0 Hypertensive heart disease with heart failure; I50.9 Heart failure, unspecified; I25.10 Atherosclerotic heart disease of native coronary artery without angina pectoris; E11.9 Type 2 diabetes mellitus without complications; Z86.73 Personal history of transient ischemic attack (TIA), and cerebral infarction without residual deficits; Z59.0 Homelessness; Z79.899 Other long term (current) drug therapy; Z79.82 Long term (current) use of aspirin; Y90.9 Presence of alcohol in blood, level not specified